=== PATIENT | male | born 1990 | race Caucasian/White ===

== ENCOUNTER 2022-02-13 18:38 | Inpatient (IN) | payer MEDICAID ==
[~2022-02-13] VITALS: Ht 182.9 cm; Wt 93.9 kg
[2022-02-13 20:31] LABS: GLUCOMETER DEV NAME(LOC) POC.BV
[2022-02-13 22:12] VITALS: BP 152/74
[2022-02-14] MEDS ORDERED: ZOLPIDEM TARTRATE 10 MG TABLET PO PRN (00:15)
[2022-02-14 08:23] VITALS: BP 113/67
[2022-02-14] MEDS ORDERED: NICOTINE 14 MG/24 HOUR PATCH TD PRN (10:30)
[2022-02-14] MEDS ORDERED: MAGNESIUM HYDROXIDE SUSPENSION 30 ML UDCUP PO PRN (10:30)
[2022-02-14] MEDS ORDERED: IBUPROFEN 400 MG TABLET PO PRN (10:30)
[2022-02-14] MEDS ORDERED: LOPERAMIDE HCL 2 MG CAPSULE PO PRN (10:30)
[2022-02-14] MEDS ORDERED: PETROLATUM,WHITE 28 GM JELLY TP PRN (10:30)
[2022-02-14] MEDS ORDERED: ALBUTEROL SULFATE HFA 90 MCG/PUFF 8 GM INHALER IH PRN (10:30)
[2022-02-14] MEDS ORDERED: DOCUSATE SODIUM 100 MG CAPSULE PO PRN (10:30)
[2022-02-14] MEDS ORDERED: GuaiFENesin/D-METHORPHAN [SUGAR-FREE] 200-20MG/10 ML SYRUP UDCUP PO PRN (10:30)
[2022-02-14] MEDS ORDERED: ACETAMINOPHEN 325 MG TABLET PO PRN (10:30)
[2022-02-14] MEDS ORDERED: ONDANSETRON HCL 4 MG TABLET PO PRN (10:30)
[2022-02-14] MEDS ORDERED: MAG HYDROX/AL HYDROX/SIMETH ES 30 ML SUSPENSION UDCUP PO PRN (10:30)
[2022-02-14] MEDS ORDERED: CloNIDine HCL 0.1 MG TABLET PO PRN (10:30)
[2022-02-14] MEDS: OLANZapine 5 MG RAPDIS TABLET PO SCH ×2 (10:51→20:18)
[2022-02-14] MEDS: HALOPERIDOL 5 MG TABLET PO PRN (12:18)
[2022-02-14] MEDS: LORazepam 2 MG TABLET PO PRN (12:19)
[2022-02-14 16:49] VITALS: BP 118/74
[2022-02-15 00:57] VITALS: BP 112/68
[2022-02-15 07:22] LABS: APPEARANCE,URINE CLEAR (CLEAR); BILIRUBIN,URINE NEGATIVE (NEGATIVE); GLUCOSE, URINE (UA) NEGATIVE (NEGATIVE); KETONES,URINE NEGATIVE (NEGATIVE); LEUKOCYTE ESTERASE ,URINE NEGATIVE (NEGATIVE); NITRATE,URINE NEGATIVE (NEGATIVE); OCCULT BLOOD,URINE NEGATIVE (NEGATIVE); PH,URINE 7.5 (5.0-8.0); PROTEIN,URINE TRACE mg/dL (NEGATIVE); SPECIFIC GRAVITIY, URINE 1.034 (1.003-1.030); UROBILINOGEN,URINE <=1.0 mg/dL (<=1.0)
[2022-02-15 07:27] LABS: AMPHET/METH SCREEN,URINE POSITIVE (NEGATIVE); BARBITURATE SCREEN, URINE NEGATIVE (NEGATIVE); BENZODIAZEPINES SCREEN,URINE NEGATIVE (NEGATIVE); CANNABINOID SCREEN,URINE NEGATIVE (NEGATIVE); COCAINE SCREEN,URINE NEGATIVE (NEGATIVE); METHADONE SCREEN, URINE NEGATIVE (NEGATIVE); OPIATE SCREEN,URINE NEGATIVE (NEGATIVE)
[2022-02-15 07:31] LABS: PHENCYCLIDINE SCREEN,URINE NEGATIVE (NEGATIVE)
[2022-02-15 08:23] LABS: BACTERIA,URINE None Seen /HPF (None Seen); RBC,URINE None Seen /HPF (0-2); SQUAMOUS EPITHELIAL CELL,UR None Seen /LPF (None Seen); WBC,URINE None Seen /HPF (0-5)
[2022-02-15] MEDS: OLANZapine 5 MG RAPDIS TABLET PO SCH ×2 (08:53→20:21)
[2022-02-15] MEDS: LORazepam 2 MG TABLET PO PRN (08:53)
[2022-02-15 12:01] VITALS: BP 126/71
[2022-02-15] MEDS ORDERED: NICOTINE POLACRILEX 2 MG LOZENGE PO PRN (14:15)
[2022-02-15 16:19] VITALS: BP 127/66
[2022-02-16 01:06] VITALS: BP 123/67
[2022-02-16 08:18] VITALS: BP 132/76
[2022-02-16] MEDS: OLANZapine 5 MG RAPDIS TABLET PO SCH ×2 (09:17→20:38)
[2022-02-17 00:32] VITALS: BP 122/67
[2022-02-17] MEDS: OLANZapine 5 MG RAPDIS TABLET PO SCH ×2 (08:34→20:29)
[2022-02-17 08:39] VITALS: BP 128/65
[2022-02-17] MEDS: LORazepam 2 MG TABLET PO PRN (15:47)
[2022-02-17 16:35] VITALS: BP 140/84
[2022-02-18 00:50] VITALS: BP 132/78
[2022-02-18 07:35] LABS: BASOPHILS % (AUTO) 0.6 % (0.0-2.0); EOSINOPHILS % (AUTO) 3.4 % (1.0-6.0); HEMATOCRIT 42.3 % (41-53); HEMOGLOBIN 14.4 g/dL (13.5-17.5); LYMPHOCYTES # (AUTO) 2.5 K/uL (1.0-4.8); LYMPHOCYTES % (AUTO) 43.8 % (22.0-44.0); MEAN CORPUSCULAR HEMOGLOBIN 30.7 pg (26.0-34.0); MEAN CORPUSCULAR HGB CONC 33.9 G/dL (31.0-37.0); MEAN CORPUSCULAR VOLUME 91 fL (80-100); MONOCYTES # (AUTO) 0.6 K/uL (0.1-1.0); MONOCYTES % (AUTO) 10.4 % (2.0-9.0); NEUTROPHILS # (AUTO) 2.4 K/uL (1.8-7.7); NEUTROPHILS % (AUTO) 41.8 % (40.0-70.0); PLATELET COUNT (AUTO) 234 K/uL (150-450); RED BLOOD CELL COUNT(AUTO) 4.67 MIL/uL (4.50-5.90); RED CELL DISTRIBUTION WIDTH 13.6 % (11.5-14.5)
[2022-02-18 07:59] LABS: HEMOGLOBIN A1C 5.4 % (3.8-5.6)
[2022-02-18 08:12] LABS: ALANINE AMINOTRANSFERASE 29 U/L (12-78); ALBUMIN 3.4 g/dL (3.4-5.0); ALKALINE PHOSPHATASE 57 U/L (46-116); ANION GAP 4 mmol/L (8-16); ASPARTATE AMINOTRANSFERASE 15 U/L (15-37); BILIRUBIN,TOTAL 0.3 mg/dL (0.1-1.0); CALCIUM, TOTAL 8.1 mg/dL (8.8-10.5); CARBON DIOXIDE 29 mmol/L (22-29); CHLORIDE 104 mmol/L (98-107); CHOL/HDL RATIO 3.8 (4.2-7.3); CHOLESTEROL 129 mg/dL (131-200); CREATININE 0.71 mg/dL (0.60-1.30); FREE T4 (FREE THYROXINE) 0.73 ng/dL (0.76-1.46); GLOMERULAR FILTR. RATE CALC > 60 mL/min (>60); GLUCOSE,RANDOM 97 mg/dL (70-110); HDL CHOLESTEROL 34 mg/dL (40-60); LDL CHOL (CALC.) 78 mg/dL (0-130); POTASSIUM 3.8 mmol/L (3.5-5.1); SODIUM SERUM 137 mmol/L (136-145); THYROID STIMULATING HORMONE 2.35 uIU/mL (0.36-3.74); TOTAL PROTEIN, SERUM 6.4 g/dL (6.4-8.2); TRIGLYCERIDES 84 mg/dL (15-150); UREA NITROGEN, BLOOD 15 mg/dL (7-18)
[2022-02-18 08:15] VITALS: BP 130/76
[2022-02-18 08:17] LABS: VALPROIC ACID < 3 mcg/mL (50-100)
[2022-02-18] MEDS: OLANZapine 5 MG RAPDIS TABLET PO SCH ×2 (08:54→20:34)
[2022-02-18 16:10] VITALS: BP 126/72
[2022-02-19 00:58] VITALS: BP 122/70
[2022-02-19 08:11] VITALS: BP 119/70
[2022-02-19] MEDS: OLANZapine 5 MG RAPDIS TABLET PO SCH ×2 (09:00→20:10)
[2022-02-19 16:20] VITALS: BP 113/62
[2022-02-19 16:21] LABS: GLUCOMETER DEV NAME(LOC) POC.BV
[2022-02-19] MEDS: LORazepam 2 MG TABLET PO PRN (20:10)
[2022-02-20 01:01] VITALS: BP 121/72
[2022-02-20 08:13] VITALS: BP 104/74
[2022-02-20] MEDS: OLANZapine 5 MG RAPDIS TABLET PO SCH ×2 (08:33→20:10)
[2022-02-20 16:14] VITALS: BP 114/66
[2022-02-20] MEDS: LORazepam 2 MG TABLET PO PRN (20:17)
[2022-02-21 00:35] VITALS: BP 117/62
[2022-02-21 08:21] VITALS: BP 117/77
[2022-02-21] MEDS: OLANZapine 5 MG RAPDIS TABLET PO SCH ×2 (08:34→21:00)
[2022-02-21] MEDS: LORazepam 2 MG TABLET PO PRN ×2 (12:30→23:30)
[2022-02-21 16:12] VITALS: BP 125/69
[2022-02-21] MEDS: HALOPERIDOL 5 MG TABLET PO PRN (23:30)
[2022-02-22 05:59] VITALS: BP 115/72
[2022-02-22 08:21] VITALS: BP 120/76
[2022-02-22] MEDS: OLANZapine 5 MG RAPDIS TABLET PO SCH (08:36)
[2022-02-22] MEDS: LORazepam 2 MG TABLET PO PRN (08:36)
[2022-02-22] MEDS ORDERED: OLAN5TAB94 PO (09:07)
== END 2022-02-22 12:24 | disposition home or self-care (01) | DRG 750 ==
LOC: B2S 19:53
PROVIDERS: ADMIT Psychiatry & Neurology Psychiatry; ATTEND Psychiatry & Neurology Psychiatry
DX: F20.0 Paranoid schizophrenia (principal); R45.851 Suicidal ideations; Z59.00 Homelessness unspecified; Z20.822 Contact with and (suspected) exposure to COVID-19; F15.10 Other stimulant abuse, uncomplicated; F12.10 Cannabis abuse, uncomplicated
CPT/HCPCS: 80053; 80061; 80164; 80307; 81001; 83036; 84439; 84443; 85025; Q9967

== ENCOUNTER 2022-04-27 17:42 | Inpatient (IN) | payer MEDICAID ==
[~2022-04-27] VITALS: Ht 182.9 cm; Wt 115.9 kg
[~2022-04-27 17:42] MED LIST: OLAN5TAB94 PO
[2022-04-27 22:05] LABS: BASOPHILS % (AUTO) 0.4 % (0.0-2.0); HEMATOCRIT 39.6 % (41-53); HEMOGLOBIN 13.6 g/dL (13.5-17.5); LYMPHOCYTES # (AUTO) 2.3 K/uL (1.0-4.8); LYMPHOCYTES % (AUTO) 27.1 % (22.0-44.0); MEAN CORPUSCULAR HEMOGLOBIN 31.4 pg (26.0-34.0); MEAN CORPUSCULAR HGB CONC 34.3 G/dL (31.0-37.0); MEAN CORPUSCULAR VOLUME 92 fL (80-100); MONOCYTES % (AUTO) 11.8 % (2.0-9.0); NEUTROPHILS # (AUTO) 4.9 K/uL (1.8-7.7); NEUTROPHILS % (AUTO) 56.7 % (40.0-70.0); PLATELET COUNT (AUTO) 269 K/uL (150-450); RED BLOOD CELL COUNT(AUTO) 4.32 MIL/uL (4.50-5.90); RED CELL DISTRIBUTION WIDTH 15.2 % (11.5-14.5)
[2022-04-27 22:13] LABS: COVID AG,FIA SOURCE NASOPHARYNGEAL
[2022-04-27 22:17] LABS: ANION GAP 7 mmol/L (8-16); CALCIUM, TOTAL 8.6 mg/dL (8.8-10.5); CARBON DIOXIDE 30 mmol/L (22-29); CHLORIDE 102 mmol/L (98-107); CREATININE 0.93 mg/dL (0.60-1.30); GLUCOSE,RANDOM 106 mg/dL (70-110); POTASSIUM 3.7 mmol/L (3.5-5.1); SODIUM SERUM 139 mmol/L (136-145); UREA NITROGEN, BLOOD 22 mg/dL (7-18)
[2022-04-27 22:23] LABS: ALANINE AMINOTRANSFERASE 43 U/L (12-78); ALBUMIN 3.8 g/dL (3.4-5.0); ALKALINE PHOSPHATASE 66 U/L (46-116); ASPARTATE AMINOTRANSFERASE 39 U/L (15-37); BILIRUBIN,TOTAL 0.4 mg/dL (0.1-1.0)
[2022-04-27 22:26] LABS: GLOMERULAR FILTR. RATE CALC > 60 mL/min (>60)
[2022-04-27] MEDS ORDERED: OLANZapine 5 MG RAPDIS TABLET PO PRN (22:30)
[2022-04-27] MEDS ORDERED: LORazepam 2 MG TABLET PO PRN (22:30)
[2022-04-27] MEDS ORDERED: ZOLPIDEM TARTRATE 10 MG TABLET PO PRN (22:30)
[2022-04-28 09:42] VITALS: BP 125/68
[2022-04-28] MEDS ORDERED: PALIPERIDONE PALMITATE 234 MG/1.5 ML SYRINGE IM ONE (10:45)
[2022-04-28] MEDS ORDERED: TUBERCULIN, PURIFIED PROTEIN DERIVATIVE 5 TU/0.1 ML SYRINGE ID ONE (10:45)
[2022-04-28] MEDS ORDERED: ACETAMINOPHEN 325 MG TABLET PO PRN (10:45)
[2022-04-28] MEDS ORDERED: GuaiFENesin/D-METHORPHAN [SUGAR-FREE] 200-20MG/10 ML SYRUP UDCUP PO PRN (10:45)
[2022-04-28] MEDS ORDERED: QUEtiapine FUMARATE 100 MG TABLET PO PRN (10:45)
[2022-04-28] MEDS ORDERED: LOPERAMIDE HCL 2 MG CAPSULE PO PRN (10:45)
[2022-04-28] MEDS ORDERED: HydrOXYzine PAMOATE 50 MG CAPSULE PO PRN (10:45)
[2022-04-28] MEDS ORDERED: MAGNESIUM HYDROXIDE SUSPENSION 30 ML UDCUP PO PRN (10:45)
[2022-04-28] MEDS ORDERED: MAG HYDROX/AL HYDROX/SIMETH ES 30 ML SUSPENSION UDCUP PO PRN (10:45)
[2022-04-28] MEDS: THIAMINE 100 MG TABLET PO SCH (16:18)
[2022-04-28 16:19] VITALS: BP 107/61
[2022-04-28] MEDS: DIVALPROEX SODIUM 250 MG ER TABLET PO SCH (20:22)
[2022-04-28] MEDS: MELATONIN 5 MG TABLET PO SCH (20:22)
[2022-04-28] MEDS ORDERED: QUEtiapine FUMARATE 200 MG TABLET PO SCH (21:00)
[2022-04-28] MEDS ORDERED: SERTRALINE HCL 100 MG TABLET PO SCH (21:00)
[2022-04-29 06:15] VITALS: BP 112/60
[2022-04-29 07:19] LABS: HEMOGLOBIN A1C 5.1 % (3.8-5.6)
[2022-04-29 07:37] LABS: APPEARANCE,URINE CLEAR (CLEAR); BILIRUBIN,URINE NEGATIVE (NEGATIVE); GLUCOSE, URINE (UA) NEGATIVE (NEGATIVE); KETONES,URINE NEGATIVE (NEGATIVE); LEUKOCYTE ESTERASE ,URINE NEGATIVE (NEGATIVE); NITRATE,URINE NEGATIVE (NEGATIVE); OCCULT BLOOD,URINE NEGATIVE (NEGATIVE); PH,URINE 7.5 (5.0-8.0); PROTEIN,URINE NEGATIVE (NEGATIVE); SPECIFIC GRAVITIY, URINE 1.026 (1.003-1.030); UROBILINOGEN,URINE <=1.0 mg/dL (<=1.0)
[2022-04-29 07:40] LABS: CHOL/HDL RATIO 3.9 (4.2-7.3); FREE T4 (FREE THYROXINE) 0.74 ng/dL (0.76-1.46); THYROID STIMULATING HORMONE 0.81 uIU/mL (0.36-3.74)
[2022-04-29 07:56] LABS: AMPHET/METH SCREEN,URINE NEGATIVE (NEGATIVE); BARBITURATE SCREEN, URINE NEGATIVE (NEGATIVE); BENZODIAZEPINES SCREEN,URINE NEGATIVE (NEGATIVE); CANNABINOID SCREEN,URINE NEGATIVE (NEGATIVE); COCAINE SCREEN,URINE POSITIVE (NEGATIVE); METHADONE SCREEN, URINE NEGATIVE (NEGATIVE); OPIATE SCREEN,URINE NEGATIVE (NEGATIVE)
[2022-04-29 07:59] LABS: PHENCYCLIDINE SCREEN,URINE NEGATIVE (NEGATIVE)
[2022-04-29] MEDS: THIAMINE 100 MG TABLET PO SCH ×2 (08:06→17:03)
[2022-04-29] MEDS: MULTIVITAMINS WITH MINERALS, THERAPEUTIC TABLET PO SCH (08:06)
[2022-04-29] MEDS: NALTREXONE HCL 50 MG TABLET PO SCH (08:06)
[2022-04-29] MEDS: OMEGA-3/DHA/EPA/FISH OIL 1,000 MG CAPSULE PO SCH (08:06)
[2022-04-29] MEDS: FOLIC ACID 1 MG TABLET PO SCH (08:06)
[2022-04-29 08:21] VITALS: BP 100/65
[2022-04-29] MEDS: SERTRALINE HCL 100 MG TABLET PO SCH (20:38)
[2022-04-29] MEDS: QUEtiapine FUMARATE 300 MG TABLET PO SCH (20:38)
[2022-04-29] MEDS: DIVALPROEX SODIUM 250 MG ER TABLET PO SCH (20:39)
[2022-04-29] MEDS: MELATONIN 5 MG TABLET PO SCH (20:39)
[2022-04-29 21:06] VITALS: BP 106/52
[2022-04-30] MEDS: MULTIVITAMINS WITH MINERALS, THERAPEUTIC TABLET PO SCH (08:22)
[2022-04-30] MEDS: NALTREXONE HCL 50 MG TABLET PO SCH (08:22)
[2022-04-30] MEDS: THIAMINE 100 MG TABLET PO SCH ×2 (08:22→17:02)
[2022-04-30] MEDS: FOLIC ACID 1 MG TABLET PO SCH (08:22)
[2022-04-30] MEDS: OMEGA-3/DHA/EPA/FISH OIL 1,000 MG CAPSULE PO SCH (08:22)
[2022-04-30 09:10] VITALS: BP 115/58
[2022-04-30] MEDS ORDERED: MELA5TAB40 PO (13:49)
[2022-04-30] MEDS ORDERED: SERT-440 PO (13:49)
[2022-04-30] MEDS ORDERED: DIVA-85 PO (13:49)
[2022-04-30] MEDS ORDERED: QUET300T19 PO (13:49)
[2022-04-30] MEDS ORDERED: OMEG-108 PO (13:49)
[2022-04-30] MEDS ORDERED: NALT50TA PO (13:49)
[2022-04-30] MEDS ORDERED: DIVA-80 PO (13:51)
[2022-04-30 20:08] VITALS: BP 130/78
[2022-04-30] MEDS: SERTRALINE HCL 100 MG TABLET PO SCH (20:40)
[2022-04-30] MEDS: MELATONIN 5 MG TABLET PO SCH (20:40)
[2022-04-30] MEDS: QUEtiapine FUMARATE 300 MG TABLET PO SCH (20:40)
[2022-04-30] MEDS ORDERED: DIVALPROEX SODIUM 500 MG ER TABLET PO SCH (21:00)
[2022-05-01] MEDS: THIAMINE 100 MG TABLET PO SCH (08:13)
[2022-05-01] MEDS: MULTIVITAMINS WITH MINERALS, THERAPEUTIC TABLET PO SCH (08:13)
[2022-05-01] MEDS: OMEGA-3/DHA/EPA/FISH OIL 1,000 MG CAPSULE PO SCH (08:13)
[2022-05-01] MEDS: NALTREXONE HCL 50 MG TABLET PO SCH (08:13)
[2022-05-01] MEDS: FOLIC ACID 1 MG TABLET PO SCH (08:13)
[2022-05-01 08:17] VITALS: BP 104/55
[2022-05-02] MEDS ORDERED: PALIPERIDONE PALMITATE 156 MG/ML SYRINGE IM ONE (09:00)
== END 2022-05-01 15:19 | disposition home or self-care (01) | DRG 750 ==
LOC: EMS 18:39 → B3A 04-28 06:23
PROVIDERS: ADMIT Psychiatry & Neurology Psychiatry; ATTEND Psychiatry & Neurology Psychiatry
DX: F25.9 Schizoaffective disorder, unspecified (principal); G93.40 Encephalopathy, unspecified; F15.10 Other stimulant abuse, uncomplicated; F32.A Depression, unspecified; I10 Essential (primary) hypertension; F17.210 Nicotine dependence, cigarettes, uncomplicated; J44.9 Chronic obstructive pulmonary disease, unspecified; Z20.822 Contact with and (suspected) exposure to COVID-19; Z59.00 Homelessness unspecified; Z79.899 Other long term (current) drug therapy; Z91.14 Patient's other noncompliance with medication regimen
CPT/HCPCS: 80053; 80061; 80164; 81003; 83036; 84439; 84443; 85025; 87081; 99285; G0480; Q9967

== ENCOUNTER 2022-07-09 20:55 | Inpatient (IN) | payer MEDICAID ==
[~2022-07-09] VITALS: Ht 182.9 cm; Wt 110.8 kg
[~2022-07-09 20:55] MED LIST changes: +DIVA-80 PO; +MELA5TAB40 PO; +NALT50TA PO; -OLAN5TAB94 PO; +OMEG-135 PO; +QUET300T19 PO; +SERT-440 PO
[2022-07-10] MEDS ORDERED: HALOPERIDOL 5 MG TABLET PO PRN (03:00)
[2022-07-10] MEDS ORDERED: ZOLPIDEM TARTRATE 10 MG TABLET PO PRN (03:00)
[2022-07-10] MEDS ORDERED: LORazepam 2 MG TABLET PO PRN (03:00)
[2022-07-10 04:21] VITALS: BP 121/69
[2022-07-10] MEDS ORDERED: INFLUENZA VIRUS VACCINE QVS 2022-23 (6MO+)/PF 60 MCG/0.5 ML SYRINGE IM. ONE (08:30)
[2022-07-10] MEDS ORDERED: PETROLATUM,WHITE 28 GM JELLY TP PRN ×2 (09:30)
[2022-07-10] MEDS ORDERED: CloNIDine HCL 0.1 MG TABLET PO PRN ×2 (09:30)
[2022-07-10] MEDS ORDERED: LOPERAMIDE HCL 2 MG CAPSULE PO PRN ×2 (09:30)
[2022-07-10] MEDS ORDERED: ONDANSETRON HCL 4 MG TABLET PO PRN ×2 (09:30)
[2022-07-10] MEDS ORDERED: NICOTINE 14 MG/24 HOUR PATCH TD PRN ×2 (09:30)
[2022-07-10] MEDS ORDERED: ACETAMINOPHEN 325 MG TABLET PO PRN ×2 (09:30)
[2022-07-10] MEDS ORDERED: ALBUTEROL SULFATE HFA 90 MCG/PUFF 8 GM INHALER IH PRN ×2 (09:30)
[2022-07-10] MEDS ORDERED: MAG HYDROX/AL HYDROX/SIMETH ES 30 ML SUSPENSION UDCUP PO PRN ×2 (09:30)
[2022-07-10] MEDS ORDERED: GuaiFENesin/D-METHORPHAN [SUGAR-FREE] 200-20MG/10 ML SYRUP UDCUP PO PRN ×2 (09:30)
[2022-07-10] MEDS ORDERED: DOCUSATE SODIUM 100 MG CAPSULE PO PRN ×2 (09:30)
[2022-07-10] MEDS ORDERED: MAGNESIUM HYDROXIDE SUSPENSION 30 ML UDCUP PO PRN ×2 (09:30)
[2022-07-10] MEDS ORDERED: IBUPROFEN 400 MG TABLET PO PRN ×2 (09:30)
[2022-07-10 20:11] VITALS: BP 120/63
[2022-07-10] MEDS: QUEtiapine FUMARATE 300 MG TABLET PO SCH (20:21)
[2022-07-10] MEDS: DIVALPROEX SODIUM 500 MG ER TABLET PO SCH (20:21)
[2022-07-10] MEDS: SERTRALINE HCL 100 MG TABLET PO SCH (20:21)
[2022-07-10] MEDS: MELATONIN 5 MG TABLET PO SCH (20:22)
[2022-07-11 08:09] VITALS: BP 118/68
[2022-07-11] MEDS: OMEGA-3/DHA/EPA/FISH OIL 1,000 MG CAPSULE PO SCH (08:16)
[2022-07-11] MEDS: SERTRALINE HCL 100 MG TABLET PO SCH (20:10)
[2022-07-11] MEDS: DIVALPROEX SODIUM 500 MG ER TABLET PO SCH (20:10)
[2022-07-11] MEDS: QUEtiapine FUMARATE 300 MG TABLET PO SCH (20:10)
[2022-07-11] MEDS: MELATONIN 5 MG TABLET PO SCH (20:10)
[2022-07-11 22:10] VITALS: BP 122/66
[2022-07-12] MEDS: OMEGA-3/DHA/EPA/FISH OIL 1,000 MG CAPSULE PO SCH (08:27)
[2022-07-12 09:01] VITALS: BP 128/64
[2022-07-12] MEDS: DIVALPROEX SODIUM 500 MG ER TABLET PO SCH (20:08)
[2022-07-12] MEDS: SERTRALINE HCL 100 MG TABLET PO SCH (20:08)
[2022-07-12] MEDS: QUEtiapine FUMARATE 300 MG TABLET PO SCH (20:08)
[2022-07-12] MEDS: MELATONIN 5 MG TABLET PO SCH (20:08)
[2022-07-12 21:07] VITALS: BP 125/67
[2022-07-13] MEDS: OMEGA-3/DHA/EPA/FISH OIL 1,000 MG CAPSULE PO SCH (08:16)
[2022-07-13 20:20] VITALS: BP 107/69
[2022-07-13] MEDS: SERTRALINE HCL 100 MG TABLET PO SCH (20:20)
[2022-07-13] MEDS: MELATONIN 5 MG TABLET PO SCH (20:20)
[2022-07-13] MEDS: QUEtiapine FUMARATE 300 MG TABLET PO SCH (20:20)
[2022-07-13] MEDS: DIVALPROEX SODIUM 500 MG ER TABLET PO SCH (20:20)
[2022-07-14 07:03] LABS: BASOPHILS % (AUTO) 0.5 % (0.0-2.0); EOSINOPHILS % (AUTO) 2.9 % (1.0-6.0); HEMATOCRIT 43.4 % (41-53); HEMOGLOBIN 14.7 g/dL (13.5-17.5); LYMPHOCYTES # (AUTO) 2.1 K/uL (1.0-4.8); LYMPHOCYTES % (AUTO) 31.4 % (22.0-44.0); MEAN CORPUSCULAR HEMOGLOBIN 31.1 pg (26.0-34.0); MEAN CORPUSCULAR HGB CONC 33.8 G/dL (31.0-37.0); MEAN CORPUSCULAR VOLUME 92 fL (80-100); MONOCYTES # (AUTO) 0.5 K/uL (0.1-1.0); MONOCYTES % (AUTO) 8.3 % (2.0-9.0); NEUTROPHILS # (AUTO) 3.8 K/uL (1.8-7.7); NEUTROPHILS % (AUTO) 56.9 % (40.0-70.0); PLATELET COUNT (AUTO) 267 K/uL (150-450); RED BLOOD CELL COUNT(AUTO) 4.72 MIL/uL (4.50-5.90); RED CELL DISTRIBUTION WIDTH 13.7 % (11.5-14.5)
[2022-07-14 07:18] LABS: HEMOGLOBIN A1C 5.4 % (3.8-5.6)
[2022-07-14 07:45] LABS: ALANINE AMINOTRANSFERASE 22 U/L (12-78); ALBUMIN 3.4 g/dL (3.4-5.0); ALKALINE PHOSPHATASE 126 U/L (46-116); ANION GAP 4 mmol/L (8-16); ASPARTATE AMINOTRANSFERASE 15 U/L (15-37); BILIRUBIN,TOTAL 0.4 mg/dL (0.1-1.0); CALCIUM, TOTAL 8.6 mg/dL (8.8-10.5); CARBON DIOXIDE 32 mmol/L (22-29); CHLORIDE 106 mmol/L (98-107); CHOL/HDL RATIO 4.4 (4.2-7.3); CHOLESTEROL 118 mg/dL (131-200); CREATININE 0.94 mg/dL (0.60-1.30); FREE T4 (FREE THYROXINE) 0.73 ng/dL (0.76-1.46); GLUCOSE,RANDOM 73 mg/dL (70-110); HDL CHOLESTEROL 27 mg/dL (40-60); LDL CHOL (CALC.) 78 mg/dL (0-130); POTASSIUM 4.3 mmol/L (3.5-5.1); SODIUM SERUM 142 mmol/L (136-145); THYROID STIMULATING HORMONE 0.92 uIU/mL (0.36-3.74); TOTAL PROTEIN, SERUM 6.7 g/dL (6.4-8.2); TRIGLYCERIDES 67 mg/dL (15-150); UREA NITROGEN, BLOOD 19 mg/dL (7-18)
[2022-07-14 07:51] LABS: GLOMERULAR FILTR. RATE CALC > 60 mL/min (>60)
[2022-07-14] MEDS: OMEGA-3/DHA/EPA/FISH OIL 1,000 MG CAPSULE PO SCH (08:14)
[2022-07-14 08:22] VITALS: BP 134/62
[2022-07-14] MEDS: SERTRALINE HCL 100 MG TABLET PO SCH (20:11)
[2022-07-14] MEDS: DIVALPROEX SODIUM 500 MG ER TABLET PO SCH (20:11)
[2022-07-14] MEDS: QUEtiapine FUMARATE 300 MG TABLET PO SCH (20:11)
[2022-07-14] MEDS: MELATONIN 5 MG TABLET PO SCH (20:11)
[2022-07-14 20:33] VITALS: BP 124/68
[2022-07-15] MEDS: OMEGA-3/DHA/EPA/FISH OIL 1,000 MG CAPSULE PO SCH (08:32)
[2022-07-15 08:46] VITALS: BP 102/65
[2022-07-15] MEDS ORDERED: MELA5TAB40 PO (10:34)
[2022-07-15] MEDS ORDERED: SERT-440 PO (10:34)
[2022-07-15] MEDS ORDERED: QUET300T19 PO (10:34)
[2022-07-15] MEDS ORDERED: OMEG-135 PO (10:34)
[2022-07-15] MEDS ORDERED: DIVA-80 PO (10:35)
== END 2022-07-15 13:38 | disposition home or self-care (01) | DRG 750 ==
LOC: B3A 07-10 02:30
PROVIDERS: ADMIT Psychiatry & Neurology Psychiatry; ATTEND Psychiatry & Neurology Psychiatry
DX: F25.0 Schizoaffective disorder, bipolar type (principal); R45.851 Suicidal ideations; F15.10 Other stimulant abuse, uncomplicated; E66.9 Obesity, unspecified; E78.5 Hyperlipidemia, unspecified; F10.10 Alcohol abuse, uncomplicated; F41.9 Anxiety disorder, unspecified; F19.10 Other psychoactive substance abuse, uncomplicated; Z79.899 Other long term (current) drug therapy; Z59.00 Homelessness unspecified; Z68.33 Body mass index [BMI] 33.0-33.9, adult
CPT/HCPCS: 80053; 80061; 83036; 84439; 84443; 85025; Q9967